=== PATIENT | female | born 1995 | race Caucasian/White ===

== ENCOUNTER 2021-09-06 10:30 | Outpatient (CLI) | payer MEDICAID ==
[2021-09-06 15:49] LABS: BASOPHILS # (AUTO) 0.1 10^3/uL (0.0-0.1); BASOPHILS % (AUTO) 1.1 %; EOSINOPHILS # (AUTO) 0.1 10^3/uL (0.0-0.7); EOSINOPHILS % (AUTO) 1.7 %; HGB - HEMOGLOBIN 12.8 g/dL (12.0-16.0); LYMPHOCYTES # (AUTO) 1.8 10^3/uL (1.5-3.5); LYMPHOCYTES % (AUTO) 37.6 %; MEAN CORPUSCULAR HEMOGLOBIN 28.8 pg (27.0-31.0); MEAN CORPUSCULAR VOLUME 89.9 fL (81.0-99.0); MEAN PLATELET VOLUME 10.5 fL (7.9-10.8); MONOCYTES # (AUTO) 0.4 10^3/uL (0.0-1.0); MONOCYTES % (AUTO) 9.2 %; NEUTROPHILS # (AUTO) 2.4 10^3/uL (1.5-6.6); NEUTROPHILS % (AUTO) 50.2 %; PLT - PLATELET COUNT 267 10^3/uL (130-450); RED BLOOD COUNT 4.45 10^6/uL (4.20-5.40); RED CELL DISTRIBUTION WIDTH 12.7 % (12.0-15.0); WHITE BLOOD COUNT 4.7 x10^3/uL (4.8-10.8)
[2021-09-06 16:19] LABS: THYROID STIMULATING HORMONE 1.14 uIU/mL (0.34-5.60)
[2021-09-06 16:20] LABS: ALBUMIN 4.1 g/dL (3.2-5.5); ALBUMIN/GLOBULIN RATIO 1.4 (1.0-2.2); BILIRUBIN,TOTAL 0.6 mg/dL (0.2-1.0); CALCIUM 9.3 mg/dL (8.5-10.3); CREATININE 0.7 mg/dL (0.4-1.0); POTASSIUM 4.1 mmol/L (3.5-5.0); TOTAL PROTEIN 7.1 g/dL (6.7-8.2)
== END 2021-09-06 10:31 | disposition home or self-care (01) ==
LOC: LAB.S 10:30
PROVIDERS: ATTEND Registered Nurse
DX: Z79.899 Other long term (current) drug therapy (principal); Z13.29 Encounter for screening for other suspected endocrine disorder; Z13.0 Encounter for screening for diseases of the blood and blood-forming organs and certain disorders involving the immune mechanism
CPT/HCPCS: 36415; 80053; 84443; 85025

== ENCOUNTER 2022-03-29 18:08 | Emergency (ER) | payer MEDICAID, OTHER ==
[2022-03-29 18:17] VITALS: BP 134/95
[2022-03-29] MEDS ORDERED: TETANUS/DIPHTHERIA/PERTUSSIS 0.5 ML SYRINGE IM ONE (18:22)
--- NOTE | 2022-03-29 18:22 | ED Physician Documentation ---
PD HPI WOUND RECHECK - Stated complaint Stated Complaint: LT LEG INFECTION - Chief complaint Chief Complaint: Wound - Histroy obtained from History obtained from: Patient (26-year-old woman with history of asthma was bitten by a friend's dog to the posterior medial left thigh 6 days ago. Now has a lump there but without significant pain or fevers. She is not up-to-date on tetanus.) Review of Systems Constitutional: denies: Fever, Chills Cardiac: reports: Reviewed and negative Respiratory: reports: Dyspnea PD PAST MEDICAL HISTORY - Allergies Allergies/Adverse Reactions: Allergies Allergy/AdvReac Type Severity Reaction Status Date / Time No Known Drug Allergies Allergy Verified 03/29/22 18:17 PD ED PE NORMAL - Vitals Vital signs reviewed: Yes - General General: Alert and oriented X 3, No acute distress - Female Female : [employer] present (Given the location the exam and ultrasound were done with Milka the RN present and chaperoning.), Other (There is an ecchymosis that is actually quite large to the medial upper left thigh, small open area, but no evidence of infection, warmth or drainage. Bedside ultrasound shows no cobblestoning consistent with cellulitis and no abscess.) - Neuro Neuro: Alert and oriented X 3, Normal speech - Psych Psych: Normal mood, Normal affect Results - Vitals Vitals: Vital Signs - 24 hr 03/29/22 18:14 Temperature 36.7 C Heart Rate 98 Respiratory 14 Rate Blood Pressure 134/95 H O2 Saturation 100 Oxygen O2 Source Room air PD Medical Decision Making - ED course ED course: Exam consistent with ecchymosis, but no sign of infection, no abscess or cellulitis on bedside ultrasound. Departure - Departure Disposition: 01 Home, Self Care Clinical Impression: Contusion of left thigh Qualifiers: Encounter type: initial encounter Qualified Code(s): S70.12XA - Contusion of left thigh, initial encounter Condition: Good Record reviewed to determine appropriate education?: Yes Instructions: Bites Scratches Animal Comments: There is no sign of infection at this point., You can wash it with soap and water and keep it covered with a Band-Aid until the open area is healed in. Return for new or worsening symptoms especially fever or increased pain. Note for your records that you received a Tdap shot today.
== END 2022-03-29 18:46 | disposition home or self-care (01) ==
LOC: ED 18:08
DX: S70.12XA Contusion of left thigh, initial encounter (principal); W54.0XXA Bitten by dog, initial encounter
CPT/HCPCS: 90471; 99282

== ENCOUNTER 2023-02-12 08:00 | Outpatient (CLI) | payer MEDICAID ==
[2023-02-12 16:55] LABS: BILIRUBIN,URINE NEGATIVE (NEGATIVE); GLUCOSE, URINE (UA) NEGATIVE (NEGATIVE); KETONES,URINE (UA) NEGATIVE (NEGATIVE); LEUKOCYTE ESTERASE, URINE NEGATIVE (NEGATIVE); NITRITE,URINE NEGATIVE (NEGATIVE); OCCULT BLOOD,URINE NEGATIVE (NEGATIVE); PH,URINE 6.5 PH (5.0-7.5); PROTEIN,URINE NEGATIVE (NEGATIVE); UROBILINOGEN,URINE 0.2 (NORMAL) E.U./dL (NORMAL)
[2023-02-12 17:09] LABS: BACTERIA,URINE None Seen /HPF (None Seen); CLARITY,URINE CLEAR (CLEAR); RBC,URINE None Seen /HPF (0-5); SQUAMOUS EPITHELIAL CELL,UR RARE Squamous (<= Few); WBC,URINE 0-3 /HPF (0-5)
== END 2023-02-12 23:58 | disposition home or self-care (01) ==
LOC: LAB.WC 08:00
PROVIDERS: ATTEND Nurse Practitioner
DX: R39.11 Hesitancy of micturition (principal)
CPT/HCPCS: 81001; 87086

== ENCOUNTER 2023-03-25 13:48 | Outpatient (CLI) | payer MEDICAID ==
--- NOTE | 2023-03-25 15:17 | Ultrasound Report ---
PROCEDURE: Pelvic w/Transvaginal INDICATIONS: IUD TECHNIQUE: Real-time scanning was performed of the pelvic organs, with image documentation. Additional endovagi nal scanning was necessary due to incomplete visualization of the adnexal and endometrial structures by transabdominal scanning. COMPARISON: None. FINDINGS: Uterus: Uterus is anteverted and normal in size at 6.5 x 2.9 x 4.5 cm. The myometrium is heterogene ous. The endometrium measures 3 mm in combined thickness. Intrauterine device in appropriate positi on. Ovaries: The right ovary measures 2.3 x 2.3 x 2.3 cm, with a calculated ovarian volume of 6.4 cc. Do minant follicle measuring 1.5 cm. The left ovary measures 2.7 x 2.1 x 1.7 cm, with a calculated ovari an volume of 5.7 cc. The ovaries have a normal sonographic appearance. Less than 12 follicles can b e seen in the left ovary, 13 follicles are seen within the right ovary. No adnexal masses are seen. No cystic lesions measuring greater than 3 cm. Other: No pathologic free abdominal or pelvic fluid. IMPRESSION: 1.Intrauterine device in appropriate position. 2.13 follicles are seen within the right ovary, less than 12 cc left ovary. This finding is nonspecif ic. Correlate for polycystic ovarian syndrome. Reviewed by: Earl Gonzales MD on 03/25/2023 3:16 PM PST Approved by: Earl Gonzales MD on 03/25/2023 3:16 PM PST Station ID: [id number]
== END 2023-03-25 13:49 | disposition home or self-care (01) ==
LOC: DI 13:48
PROVIDERS: ATTEND Nurse Practitioner
DX: Z97.5 Presence of (intrauterine) contraceptive device (principal)

== ENCOUNTER 2023-12-30 14:36 | Outpatient (CLI) | payer MEDICAID ==
[2023-12-30 15:30] LABS: FECAL OCCULT BLOOD (FIT) NEGATIVE (NEGATIVE)
== END 2023-12-30 14:37 | disposition home or self-care (01) ==
LOC: LAB.R 14:36
PROVIDERS: ATTEND Emergency Medicine
DX: R19.7 Diarrhea, unspecified (principal)
CPT/HCPCS: 82274; 87045; 87046; 87177; 87209; 87329; 87427; 87493